=== PATIENT | male | born 1960 | race Caucasian/White ===

== ENCOUNTER → 2017-12-30 | Outpatient (CLI) | payer OTHER ==
[~2017-12-30] MED LIST: ACET-1256 PO; ACET-24 PO; ALLO300T2 PO; ASPEC325 PO; BISA-16 PO; IBUP-1450 PO; LORA-741 PO; MULT-506 PO; OXYC1TAB3 PO
--- NOTE | 2017-12-30 14:55 | DIAGNOSTIC IMAGING REPORT ---
CT OF THE LEFT SHOULDER WITHOUT CONTRAST CLINICAL HISTORY: Left humerus fracture. COMPARISON STUDY: No previous studies for comparison. TECHNIQUE: Axial images of the left shoulder were obtained without IV contrast. Sagittal and coronal reconstructions were viewed. FINDINGS: Alignment of the left acromioclavicular and glenohumeral joints is anatomic. There is an acute appearing moderately displaced comminuted impacted left humeral neck fracture that extends into the humeral head and involves the greater tuberosity which is mildly displaced. Moderate angulation at the level the fracture is noted. Extensive associated soft tissue swelling is noted. No additional fractures are identified on this exam. No intra-articular bone fragment is present. No fractures are identified within visualized portions of the left-sided ribs. IMPRESSION: 1. Acute moderately displaced comminuted impacted left humeral neck fracture that extends into the humeral head and extends through the greater tuberosity. 2. Anatomic alignment of the left acromioclavicular and glenohumeral joints. No intra-articular bone fragment identified. Electronically signed by: Vinay Sandoval M.D. 12/30/2017 2:54 PM Dictated Date/Time: 12/30/2017 2:48 PM
--- NOTE | 2017-12-30 15:27 | DIAGNOSTIC IMAGING REPORT ---
CHEST 2 VIEWS ROUTINE HISTORY: 57 years-old Male LT HUMERUS FX acute fracture of the left humerus COMPARISON: CT left upper extremity of same day TECHNIQUE: PA and lateral views of the chest FINDINGS: Cardiomediastinal and hilar silhouettes are within normal limits. Atherosclerosis of the aorta. No pneumothorax, pleural effusion, focal airspace consolidation or overt pulmonary edema. Acute mildly displaced fracture of the left humerus redemonstrated. The lateral view is limited compared to positioning of the patient's left arm. IMPRESSION: 1. No acute process of the chest. 2. Acute displaced fracture of the proximal left humerus redemonstrated. The above report was generated using voice recognition software. It may contain grammatical, syntax or spelling errors. Electronically signed by: Dontae Hwang M.D. 12/30/2017 3:25 PM Dictated Date/Time: 12/30/2017 3:24 PM
== END | disposition home or self-care (01) ==
LOC: C.CTS 14:11
PROVIDERS: ATTEND Orthopaedic Surgery Sports Medicine
DX: S42.292A Other displaced fracture of upper end of left humerus, initial encounter for closed fracture (principal); X58.XXXA Exposure to other specified factors, initial encounter

== ENCOUNTER 2018-01-02 10:58 | Observation (INO) | payer OTHER ==
[2017-12-30 14:04] VITALS: BMI 28.0
--- NOTE | 2018-01-01 22:42 | HISTORY & PHYSICAL EXAMINATION ---
DATE OF ADMISSION: 01/02/2018 CHIEF COMPLAINT: Left arm injury. HISTORY OF PRESENT ILLNESS: This is a 57-year-old male patient of Dr. Blevins's complaining of a left shoulder injury. Approximately a week ago, the [place] park and slipped falling on his arm. He was diagnosed with a displaced left proximal humerus fracture and has agreed to proceed with a left open reduction internal fixation proximal humerus fracture. PAST MEDICAL HISTORY: The patient is a healthy 57-year-old male with no heart problems, lung problems, diabetes or cancer history. SOCIAL HISTORY: He was a smoker and quit in 2009, nondrinker. PAST SURGICAL HISTORY: Negative. REVIEW OF SYSTEMS: The patient complains of acute left shoulder pain. Otherwise, denies any shortness of breath, chest pain, nausea, vomiting or any other joint complaints. FAMILY HISTORY: Noncontributory. MEDICATIONS: Include allopurinol and ibuprofen. ALLERGIES: None. PHYSICAL EXAMINATION: GENERAL: Well-developed, well-nourished 57-year-old male in no acute distress. He is alert and oriented x3 and pleasant. HEENT: Normocephalic, atraumatic. Extraocular motions are intact. Pupils are equal and reactive to light. HEART: Regular rate and rhythm, no murmurs are appreciated. LUNGS: Clear. ABDOMEN: Soft and nontender. Bowel sounds are present. EXTREMITIES: Left humerus range of motion and strength are deferred. He has moderate ecchymosis in his upper arm with no obvious deformities or dislocation. NEUROLOGICAL: Neurovascularly he is intact in his left upper extremity. DIAGNOSIS: Left shoulder proximal humerus fracture that is displaced, otherwise, a healthy 57-year-old male. PLAN: The patient was advised of his diagnosis. Indications, risks, benefits, postop course have all been reviewed. The patient wish to proceed with a left humerus open reduction internal fixation. Necessary consent forms, preoperative testing clearances will be obtained. Please note the supervising physician is Dr. Blevins. MARIA ISABEL
[~2018-01-02] VITALS: Ht 182.9 cm; Wt 93.2 kg
[~2018-01-02 10:58] MED LIST changes: -ACET-1256 PO; -ACET-24 PO; -ASPEC325 PO; -BISA-16 PO; +CEFAZOLIN 2000MG IV PUSH 15 ML IV SCH; +LACTATED RINGER'S 1000ML 1,000 ML IV SCH; +ROPIVACAINE 0.5% 5 MG/ML 30 ML VIAL ONE
[2018-01-02 11:34] LABS: HEMATOCRIT 39.9 % (42-52); HEMOGLOBIN 14.5 g/dL (14.0-18.0); MEAN CELL VOLUME 95.2 fL (80-100); MEAN CORPUSCULAR HEMOGLOBIN 34.6 pg (25-34); MEAN PLATELET VOLUME 9.1 fL (7.4-10.4); PLATELET COUNT 118 K/uL (130-400); RED CELL DISTRIBUTION WIDTH CV 13.7 % (11.5-14.5); RED CELL DISTRIBUTION WIDTH SD 47.4 fL (36.4-46.3); WHITE BLOOD COUNT 6.86 K/uL (4.8-10.8)
[2018-01-02 11:37] LABS: MEAN CORPUSCULAR HGB CONC 36.3 g/dl (32-36)
[2018-01-02 11:38] VITALS: BP 129/90; PULSE 88; TEMP 37; O2SAT 99; Ht 182.9 cm; Wt 93.2 kg
[2018-01-02 11:42] LABS: PTT PATIENT 27.3 SECONDS (21.0-31.0)
[2018-01-02] MEDS ORDERED: ACET-1256 PO (12:38)
[2018-01-02] MEDS ORDERED: BISA-16 PO (12:39)
[2018-01-02] MEDS ORDERED: FENTANYL CITRATE INJ 50 MCG/1 ML 2 ML VIAL ONE (14:30)
[2018-01-02] MEDS ORDERED: MIDAZOLAM HCL 1 MG/ML 2ML VIAL ONE (14:31)
--- NOTE | 2018-01-02 14:38 | History & Physical Bridge Note ---
H&P Re-Evaluation Bridge Note: I have examined the patient, reviewed the History & Physical and in the interval since the performance of the History & Physical I have noted the following changes of clinical significance: No changes noted
[2018-01-02] MEDS ORDERED: BACITRACIN 50000 UNIT VIAL ONE (14:50)
[2018-01-02] MEDS ORDERED: EpHEDrine SULFATE INJ 50 MG/ML AMP IV PRN (15:00)
[2018-01-02] MEDS ORDERED: ATROPINE SULFATE 0.1 MG/ML 5ML SYR IV PRN (15:00)
[2018-01-02] MEDS ORDERED: ONDANSETRON INJ 2 MG/ML 2 ML VIAL IV PRN ×2 (15:00→18:45)
[2018-01-02] MEDS ORDERED: NEOSTIGMINE METHYLSULFATE 5 MG/5 ML SYR ONE (15:43)
[2018-01-02] MEDS ORDERED: PROPOFOL IV EMULSION 10 MG/ML 20 ML VIAL IV ONE (15:43)
[2018-01-02] MEDS ORDERED: DEXAMETHASONE SOD INJ 4 MG/ML VIAL ONE (15:43)
[2018-01-02] MEDS ORDERED: LIDOCAINE HCL 2% 2 ML VIAL (20MG/ML) ONE (15:43)
[2018-01-02] MEDS ORDERED: ROCURONIUM BROMIDE 10 MG/ML 5 ML VIAL IV ONE ×3 (15:43→16:58)
[2018-01-02] MEDS ORDERED: ONDANSETRON INJ 2 MG/ML 2 ML VIAL ONE (15:43)
[2018-01-02] MEDS ORDERED: GLYCOPYRROLATE INJ 0.2 MG/ML VIAL ONE (15:43)
--- NOTE | 2018-01-02 18:38 | [facility] Post Operative Brief Note ---
Immediate Operative Summary Operative Date Jan 02, 2018. Pre-Operative Diagnosis Left shoulder proximal displaced humerus fracture, intraarticular left radius fracture with angulation Post-Operative Diagnosis Left shoulder proximal displaced humerus fracture, intraarticular left radius fracture with angulation Procedure(s) Performed Left Open Reduction Internal Fixation Proximal Humerus, closed reduction left wrist with splint application Surgeon Dr. Blevins Formal Wear Rental Clerk Surgeon(s) Trae Abdalla PA-C Estimated Blood Loss 250cc Findings Consistent with Post-Op Diagnosis Specimens none Drains 2 hemovac Anesthesia Type General Regional Complication(s) none Disposition Disposition: Recovery Room / PACU
[2018-01-02] MEDS ORDERED: LORAZEPAM 0.5 MG TAB PO PRN (18:45)
[2018-01-02] MEDS ORDERED: BISACODYL 5 MG TABEC PO SCH (18:45)
[2018-01-02] MEDS ORDERED: METOCLOPRAMIDE HCL INJ 5 MG/ML 2 ML VIAL IV PRN (18:45)
--- NOTE | 2018-01-02 18:58 | DIAGNOSTIC IMAGING REPORT ---
INTRAOPERATIVE LEFT SHOULDER 5 VIEWS CLINICAL HISTORY: Left shoulder fracture COMPARISON STUDY: CT scan dated 12/30/2017 FINDINGS: 5 fluoroscopic spot images are provided for interpretation. 127 seconds of fluoroscopic time was utilized. There is evidence for internal fixation of the proximal humeral fracture with a lateral metallic plate and 8 screws. There is no dislocation. IMPRESSION: Internally fixated proximal left humeral fracture Electronically signed by: Dominguez Dash M.D. 01/02/2018 6:56 PM Dictated Date/Time: 01/02/2018 6:55 PM
[2018-01-02] MEDS: FENTANYL CITRATE INJ 50 MCG/1 ML 2 ML VIAL IV PRN ×5 (19:00→19:23)
[2018-01-02] MEDS ORDERED: IV FLUIDS COMPLETED PRN (19:00)
--- NOTE | 2018-01-02 19:07 | DIAGNOSTIC IMAGING REPORT ---
FLUOROSCOPIC SPOT IMAGES OF THE LEFT WRIST CLINICAL HISTORY: Wrist fracture COMPARISON STUDY: No previous studies for comparison. FINDINGS: 2 fluoroscopic spot images are provided for interpretation. The study is significantly limited due to the fluoroscopic spot technique an overlying cast. By history there is a wrist fracture. No significant displacement is delineated. There is subtle cortical irregularity of the distal radius. IMPRESSION: No significant fracture displacement. Electronically signed by: Dominguez Dash M.D. 01/02/2018 7:05 PM Dictated Date/Time: 01/02/2018 7:04 PM
[2018-01-02] MEDS ORDERED: HYDROmorphone INJ 1 MG/ML SYR IV PRN (19:15)
[2018-01-02] MEDS: HYDROmorphone INJ 1 MG/ML SYR ONE (19:20)
--- NOTE | 2018-01-02 19:38 | Anesthesiology Progress Note ---
Anesthesia Post Op Note Date & Time Jan 02, 2018 at 19:38 Vital Signs Pain Intensity: 8 Vital Signs Past 12 Hours Date Time Temp Pulse Resp B/P (MAP) Pulse Ox O2 Delivery O2 Flow Rate FiO2 01/02/18 19:08 71 14 99 01/02/18 19:08 71 14 01/02/18 19:06 131/81 01/02/18 19:03 75 20 01/02/18 19:03 75 20 100 01/02/18 19:01 140/86 01/02/18 18:58 77 16 01/02/18 18:58 77 16 100 01/02/18 18:56 137/88 01/02/18 18:53 76 26 01/02/18 18:53 76 26 98 01/02/18 18:51 140/88 01/02/18 18:48 80 16 100 01/02/18 18:48 80 16 01/02/18 18:47 134/84 01/02/18 18:43 80 21 01/02/18 18:43 80 21 99 01/02/18 18:41 145/86 01/02/18 18:39 137/84 01/02/18 18:38 36.0 89 22 137/84 (97) 99 Oxymask 10 01/02/18 11:38 37 88 18 129/90 (103) 99 Room Air Notes Mental Status: alert / awake / arousable, participated in evaluation Pt Amnestic to Procedure: Yes Nausea / Vomiting: adequately controlled Pain: adequately controlled Airway Patency, RR, SpO2: stable & adequate BP & HR: stable & adequate Hydration State: stable & adequate Anesthetic Complications: no major complications apparent
[2018-01-02 20:00] VITALS: BP 125/79; PULSE 91; TEMP 37.1; O2SAT 97
--- NOTE | 2018-01-02 20:13 | OPERATIVE REPORT ---
DATE OF OPERATION: 01/02/2018 INDICATION FOR PROCEDURE: The patient is a 57-year-old male who [facility]. Suffered an injury with a closed fracture of his proximal humerus which is unstable and became angulated and displaced with a significant change in x-ray appearance from his initial x-rays. He also had an intraarticular distal radius fracture. Alignment on AP is satisfactory. On the lateral, he has some angulation with neutral alignment but no significant dorsal comminution. The patient's CAT scan and x-rays of the left proximal humerus demonstrate he has a fracture with several comminuted fragments. The lesser tuberosity is fractured in pieces and the greater tuberosity is in multiple pieces with some displacement. The main articular surface of the humeral head is intact but there is angulation apex anterior. There is some compression of the shaft into the head as well. PREOPERATIVE DIAGNOSES: Comminuted proximal humerus fracture with displacement and intraarticular distal radius fracture with angulation. POSTOPERATIVE DIAGNOSES: Same including partial tearing biceps tendon, posttraumatic. PROCEDURE: Left shoulder open reduction internal fixation using Synthes 3.5 mm locking plate including repair of the tuberosity fracture fragments and closed reduction and splinting intraarticular left distal radius fracture and biceps tenodesis. SURGEON: Dr. Blevins. SEWAGE RETICULATION DRAFTING OFFICER: Trae Abdalla PA-C. ANESTHESIA: Regional block and general. OPERATIVE PROCEDURE: The patient taken to the operating room, anesthetized under regional block and general anesthetic. He was placed on the operating room table in about a 30-degree beach chair position with a towel roll on the medial border of his left scapula for support. His shoulder was translated to left side of the bed so we could fluoroscopy off the edge of the table. His head was placed on a foam headrest and he had protective eyewear placed. All extremities were well padded. His exam had demonstrated he had significant swelling in his chest, shoulder, down his arm, hand moderately swollen as well. He had ecchymosis into his chest wall, lateral deltoid, down to the elbow. Skin was all intact. His left upper extremity was prepped and draped with ChloraPrep in usual sterile fashion. He had preoperative IV antibiotics. His left shoulder was approached with an anterior deltopectoral approach. Skin was incised sharply in a longitudinal fashion in the deltopectoral interval. Fat was divided down to the fascia. The cephalic vein was dissected out and retracted laterally with the deltoid. One crossing vein was tied off with silk ties and divided. The fracture hematoma was evacuated. The fracture was identified and the humeral head was significantly displaced off the posterior aspect of the shaft which caused significant tenting of the biceps tendon and fraying of the biceps as it tented over the spike of the shaft fracture fragment which was pulled medially with the pec muscle. It was noted that the lesser tuberosity was split in several fragments. One group of fragments was attached to the subscapularis tendon. The other part of lesser tuberosity fracture fragment was attached to the bicipital groove main humeral head fragment area. The greater tuberosity was fractured in multiple comminuted pieces, but the cuff sort of kept all these fracture fragments in continuity. At this time, I first opened the biceps tendon sheath up, removed some of the hemorrhagic tenosynovitis. Tried to work around the biceps tendon but it was tenting and helping prevent the reduction, and because there was some damage there, we just went ahead and tenodesed the biceps tendon. I released the upper centimeter of the pectoralis tendon to take some tension off the fracture fragment and tenodesed the biceps to the pectoralis tendon and resected the proximal fragment that was tenting over the shaft. This time, I subperiosteally dissected around the shaft underlying the deltoid release, some of the upper deltoid fibers enough to place the plate on and placed some #1 Vicryl sutures in the rotator interval tissue, supraspinatus tendon tissue, we got some through the infraspinatus tendon tissue but it was very comminuted. We were able to use these sutures enough to rotate the arm internally and bring it out of the posterior flexion, and by forward elevating the humerus and putting traction on it, gradually pulling on the sutures, I was able to get a #5 FiberWire suture through the infraspinatus tendon tissue posterior to the greater tuberosity fracture fragments. Then, we were able to manipulate the humerus better. I used a Santiago elevator to gently place then into the fracture site to manipulate the humerus into flexion and adduction to push the humerus posterior and lateral and released the humeral head on top of the shaft. At this point, we brought in fluoroscopy, documented the head was on the shaft. There was some compression but no angulation. Paxton this was acceptable, so we used the Synthes 3.5 mm proximal humerus locking plate. We used the small plate with 3 screw fixation in the shaft. The plate was positioned under fluoroscopy, temporarily pinned in position with a K-wire. Plate was screwed to the shaft with a 3.5 mm cortical screw and rotation of the plate on the shaft adjusted so that we were centered within the humeral head. Then, we placed multiple locking screws through the humeral head with all screws being used in the plate and then 2 more locking screws in the shaft. Then, we checked some x-rays. There was no head penetration and alignment was satisfactory. We could rotate the arm and plate was stable. At this time, I placed a drill hole through the lesser tuberosity that was still attached to the humeral head, placed a #5 FiberWire suture and passed that around the displaced lesser tuberosity fracture fragments and into the subscapularis tendon and then tied that down with a surgeon's knot and then tied that suture to the #5 FiberWire that was wrapped around the greater tuberosity fracture fragment, sewing them together. We removed #1 Vicryl sutures and the shoulder was stable through passive range of motion. The proximal section of the biceps was resected above the tenodesis site. Tenodesis was reinforced with #2 FiberWire sutures in [id number] fashion, suturing the biceps to the pec and repairing the pec to itself, repairing that upper 1 cm. The wound was copiously irrigated with pulsatile lavage antibiotic solution and then 2 drains were brought out laterally and 1 placed deep to the conjoined tendon and 1 deep to the deltoid posterolaterally. Then, the deltopectoral interval was repaired over the drains with [id number] #1 Vicryl sutures, then the subcutaneous tissues closed with interrupted 2-0 Vicryl, skin closed with ghassan. Sterile dressings were applied. Then, attention was taken to the wrist. I fashioned 2 plaster splints at the appropriate length for dorsal and volar splint fixation of the wrist fracture. We assessed the wrist fracture and it had moved appreciably from his preoperative status when visualizing this under fluoroscopy. Then, I placed anterior and posterior splints, a Oscar wrap and an Dennis wrap. We did mold the splint to hold the wrist in ulnar deviation and some palmar flexion to reestablish the radial inclination and the flexion of the articular surface on lateral view. The alignment was anatomic. The splints were held in place until hardened. We obtained final fluoroscopic views, AP and lateral, and then proceeded to place him into a sling immobilizer. Estimated blood loss approximately 250 mL. Trae Abdalla PA-C, was my first aid teacher, functioned as psych assistant for the entire procedure. He assisted in patient positioning, prepping and draping, arm positioning, soft tissue retraction, assisted me in exposure for the ORIF and assisted in subcutaneous and skin closure of the shoulder and assisted me in splinting of the wrist and will participate in postoperative care of the patient. I attest to the content of the Intraoperative Record and any orders documented therein. Any exception s are noted below.
[2018-01-02 20:30] VITALS: BP 139/86; PULSE 84; TEMP 36.6; O2SAT 97
[2018-01-02] MEDS: POTASSIUM CHLORIDE INJ 10 MEQ in SODIUM CHLORIDE 0.9% 1000ML 1,000 ML IV SCH (21:28)
[2018-01-02] MEDS: ACETAMINOPHEN 500 MG TAB PO SCH (21:28)
[2018-01-02] MEDS: CEFAZOLIN IV 2,000 MG in SYRINGE 0 ML IV SCH (21:29)
[2018-01-02 21:30] VITALS: BP 127/83; PULSE 94; TEMP 36.9; O2SAT 97
[2018-01-02 23:00] VITALS: BP 118/79; PULSE 106; TEMP 36.9; O2SAT 96
[2018-01-03] VITALS (7 sets, daily range): BP systolic 126–146; BP diastolic 71–79; PULSE 81–107; TEMP 36.9–37.2; O2SAT 93–96
[2018-01-03] MEDS: OXYCODONE HCL IR 5 MG TAB (IMMEDIATE RELEASE) PO PRN ×4 (01:43→19:33)
[2018-01-03] MEDS: CEFAZOLIN IV 2,000 MG in SYRINGE 0 ML IV SCH (06:11)
[2018-01-03] MEDS: POTASSIUM CHLORIDE INJ 10 MEQ in SODIUM CHLORIDE 0.9% 1000ML 1,000 ML IV SCH ×2 (06:11→16:40)
[2018-01-03] MEDS: ACETAMINOPHEN 500 MG TAB PO SCH ×3 (06:11→21:34)
[2018-01-03 07:08] LABS: HEMATOCRIT 35.4 % (42-52); HEMOGLOBIN 12.9 g/dL (14.0-18.0); MEAN CELL VOLUME 94.9 fL (80-100); MEAN CORPUSCULAR HEMOGLOBIN 34.6 pg (25-34); MEAN CORPUSCULAR HGB CONC 36.4 g/dl (32-36); MEAN PLATELET VOLUME 9.1 fL (7.4-10.4); PLATELET COUNT 149 K/uL (130-400); RED CELL DISTRIBUTION WIDTH CV 13.3 % (11.5-14.5); RED CELL DISTRIBUTION WIDTH SD 46.2 fL (36.4-46.3); WHITE BLOOD COUNT 11.62 K/uL (4.8-10.8)
[2018-01-03 07:36] LABS: CALCIUM 8.5 mg/dl (8.5-10.1); CREATININE 0.9 mg/dl (0.60-1.40); POTASSIUM 4.2 mmol/L (3.5-5.1)
--- NOTE | 2018-01-03 08:01 | Anesthesiology Progress Note ---
Anesthesia Post Op Note Date & Time Jan 03, 2018 at 08:00 Vital Signs Pain Intensity: 9.0 Vital Signs Past 12 Hours Date Time Temp Pulse Resp B/P (MAP) Pulse Ox O2 Delivery O2 Flow Rate FiO2 01/03/18 07:55 37.0 91 16 126/71 (89) 95 Room Air 01/03/18 03:40 37.0 96 16 129/79 (96) 95 Room Air 01/03/18 00:07 107 95 Room Air 01/02/18 23:35 Room Air 01/02/18 23:00 36.9 106 18 118/79 (92) 96 Nasal Cannula 2.0 01/02/18 21:30 36.9 94 16 127/83 (98) 97 Room Air 2.0 01/02/18 20:30 36.6 84 16 139/86 (103) 97 Nasal Cannula 2.0 Notes Mental Status: alert / awake / arousable, participated in evaluation Pt Amnestic to Procedure: Yes Nausea / Vomiting: adequately controlled Pain: adequately controlled Airway Patency, RR, SpO2: stable & adequate BP & HR: stable & adequate Hydration State: stable & adequate Anesthetic Complications: no major complications apparent
--- NOTE | 2018-01-03 08:13 | Orthopedic Progress Note ---
Orthopedic Progress Note Date of Service Jan 03, 2018. Subjective Post OP Day: 1 Reports: feeling well, pain controlled w PO medications, Denies: complaints, chest pain, SOB, nausea / vomiting, light headedness, calf pain Objective calves soft nontender, N/V intact, capillary refill less than 2 sec., dressing C /D/I, A&O x3 Sling in tact, fingers mobile and splint in tact at wrist. Date Time Temp Pulse Resp B/P (MAP) Pulse Ox O2 Delivery O2 Flow Rate FiO2 01/03/18 07:55 37.0 91 16 126/71 (89) 95 Room Air 01/03/18 03:40 37.0 96 16 129/79 (96) 95 Room Air 01/03/18 00:07 107 95 Room Air 01/02/18 23:35 Room Air 01/02/18 23:00 36.9 106 18 118/79 (92) 96 Nasal Cannula 2.0 01/02/18 21:30 36.9 94 16 127/83 (98) 97 Room Air 2.0 01/02/18 20:30 36.6 84 16 139/86 (103) 97 Nasal Cannula 2.0 01/02/18 20:00 Nasal Cannula 2.0 01/02/18 20:00 37.1 91 16 125/79 (94) 97 Nasal Cannula 2.0 01/02/18 20:00 Nasal Cannula 2.0 01/02/18 19:39 36.7 79 16 127/75 (87) 99 Nasal Cannula 2 Oxymask 01/02/18 19:08 71 14 99 01/02/18 19:08 71 14 01/02/18 19:06 131/81 01/02/18 19:03 75 20 01/02/18 19:03 75 20 100 01/02/18 19:01 140/86 01/02/18 18:58 77 16 01/02/18 18:58 77 16 100 01/02/18 18:56 137/88 01/02/18 18:53 76 26 18 18:53 76 26 98 01/02/18 18:51 140/88 18 18:48 80 16 100 01/02/18 18:48 80 16 18 18:47 134/84 3/19/18 18:43 80 21 01/02/18 18:43 80 21 99 01/02/18 18:41 145/86 01/02/18 18:39 137/84 01/02/18 18:38 36.0 89 22 137/84 (97) 99 Oxymask 10 01/02/18 11:38 37 88 18 129/90 (103) 99 Room Air Laboratory Results 24 Hours: Test 01/02/18 11:23 01/03/18 06:51 Hematocrit 39.9 % 35.4 % Hemoglobin 14.5 g/dL 12.9 g/dL Prothromb Time International Ratio 1.0 Prothrombin Time 10.4 SECONDS Assessment & Plan Assessment: POD #1, Left prox humerus ORIF, left wrist closed reduction/ splinting Plan: Pain control D/C AFTER LUNCH IF PAIN CONTROLLED ON PO MEDS Inhouse Planning Pain Management: Dilaudid, Morphine, PO Tylenol, Oxy IR DVT Prophylaxis: SCDs, ASA Discharge Planning Discharge Planning: home Pain Management: PO Tylenol, Oxy IR DVT Prophylaxis: ASA
[2018-01-03] MEDS ORDERED: OXYC1TAB3 PO (08:15)
[2018-01-03] MEDS ORDERED: ASPEC325 PO (08:15)
[2018-01-03] MEDS ORDERED: ACET-24 PO (08:15)
--- NOTE | 2018-01-03 08:23 | Discharge Instructions ---
Discharge Instructions Date of Service Jan 03, 2018. Admission Reason for Admission: Left Humerous Proximal Fracture Discharge Discharge Diagnosis / Problem: LEFT PROX HUMERUS ORIF, LEFT WRIST CLOSED REDUCTION/ SPLINTING. Discharge Goals Goal(s): Improve function Activity Recommendations Activity Limitations: as noted below . Instructions / Follow-Up Instructions / Follow-Up KEEP WRIST SPLINT CLEAN, DRY AND IN TACT AT ALL TIMES, MAY WIGGLE FINGERS NEEDED. ELEVATE WRIST 2-3 TIMES DAILY. KEEP SHOULDER SLING IN TACT, MAY LOOSEN 2-3 TIMES DAILY FOR ELBOW MOTION ONLY IF NEEDED IF ELBOW GETS STIFF, NO SHOULDER MOTION. KEEP SHOULDER INCISION CLEAN AND DRY, DAILY DRY STERILE DRESSING CHANGES TO SHOULDER. MAY SHOWER AFTER POST OP DAY #2. (may not remove wrist splint and must cover to keep dry, ok to get shoulder incision wet briefly). ASPIRIN 325MG TAB ONCE DAILY FOR 3 WEEKS TO PREVENT BLOOD CLOTS. FOLLOW UP W DR. LOMAS'S OFFICE 7-10 DAYS POST OP, CALL [phone] TO SCHEDULE/ CONFIRM APPT. Current Hospital Diet Patient's current hospital diet: Regular Diet Discharge Diet Recommended Diet: Regular Diet Procedures Procedures Performed: Left Open Reduction Internal Fixation Proximal Humerus, closed reduction left wrist with splint application Pending Studies Studies pending at discharge: no Medical Emergencies . Who to Call and When: Medical Emergencies: If at any time you feel your situation is an emergency, please call 911 immediately. . Non-Emergent Contact Non-Emergency issues call your: Primary Care Provider . "Provider Documentation" section prepared by Trae Abdalla. .
[2018-01-03] MEDS: ASPIRIN 325 MG ECTAB PO SCH (08:46)
[2018-01-03] MEDS: ALLOPURINOL 300 MG TAB PO SCH (08:46)
[2018-01-03] MEDS: MULTIVITAMIN TAB PO SCH (08:46)
[2018-01-03] MEDS: MoRPHine SULFATE 2 MG/ML CARP IV PRN ×4 (08:51→21:40)
[2018-01-04] MEDS: OXYCODONE HCL IR 5 MG TAB (IMMEDIATE RELEASE) PO PRN ×3 (00:08→11:20)
[2018-01-04] MEDS: ACETAMINOPHEN 500 MG TAB PO SCH (05:17)
[2018-01-04 07:11] VITALS: BP 120/73; PULSE 73; TEMP 37.2; O2SAT 95
--- NOTE | 2018-01-04 08:08 | Orthopedic Progress Note ---
Orthopedic Progress Note Date of Service Jan 04, 2018. Subjective Post OP Day: 2 Reports: feeling well, pain controlled w PO medications Additional Notes: pain control much better this AM. Hoping to go home today. Objective splint C/D/I, dressing C/D/I, A&O x3, CMS intact slight pins/needles sensation in thumb this AM. Moving thumb/fingers well. Date Time Temp Pulse Resp B/P (MAP) Pulse Ox O2 Delivery O2 Flow Rate FiO2 01/04/18 07:11 37.2 73 16 120/73 (89) 95 Room Air 01/04/18 00:10 Room Air 01/03/18 23:20 36.9 87 16 132/75 (94) 96 Room Air 01/03/18 16:00 93 Room Air 01/03/18 15:00 37.2 81 16 146/77 (100) 93 Room Air 01/03/18 09:14 37.0 91 16 95 Room Air Assessment & Plan Assessment: POD #2, Left prox humerus ORIF, left wrist closed reduction/ splinting Plan: Pain controlled Plan for dc to home today. Inhouse Planning Pain Management: Morphine, PO Tylenol, Oxy IR DVT Prophylaxis: SCDs, ASA Discharge Planning Discharge Planning: home Pain Management: PO Tylenol, Oxy IR DVT Prophylaxis: ASA
[2018-01-04] MEDS: ASPIRIN 325 MG ECTAB PO SCH (08:49)
[2018-01-04] MEDS: ALLOPURINOL 300 MG TAB PO SCH (08:49)
[2018-01-04] MEDS: MULTIVITAMIN TAB PO SCH (08:50)
[2018-01-04 09:30] VITALS: BP 120/73; PULSE 73; TEMP 37.2; O2SAT 95
== END 2018-01-04 11:45 | disposition home or self-care (01) ==
LOC: C.ACU 10:58 → C.3E 18:41 → ENRESERV 19:14
PROVIDERS: ADMIT Orthopaedic Surgery Sports Medicine; ATTEND Orthopaedic Surgery Sports Medicine
DX: S42.202A Unspecified fracture of upper end of left humerus, initial encounter for closed fracture (principal); S52.502A Unspecified fracture of the lower end of left radius, initial encounter for closed fracture; W01.0XXA Fall on same level from slipping, tripping and stumbling without subsequent striking against object, initial encounter; Y92.838 Other recreation area as the place of occurrence of the external cause; E78.5 Hyperlipidemia, unspecified; Z87.891 Personal history of nicotine dependence